=== PATIENT | male | born 1955 | race Caucasian/White ===

== ENCOUNTER → 2016-02-16 | Outpatient (CLI) | payer OTHER ==
[2016-02-16 16:11] LABS: CH 30.1; CHCM 34.2; HCT 50.5 % (39.0-53.0); HDW 2.52; HGB 16.5 gm/dL (13.0-17.5); MCH 28.9 pg (25.0-35.0); MCHC 32.7 g/dL (31.0-37.0); MCV 88.5 fL (80.0-100.0); RDW 12.9 % (11.5-15.5); WBC 8.4 k/uL (3.8-10.6)
[2016-02-16 16:51] LABS: Prostate Specific Antigen 0.58 ng/mL (0.00-4.00)
== END | disposition home or self-care (01) ==
LOC: LABWHC1 15:46
PROVIDERS: ATTEND Internal Medicine Endocrinology, Diabetes & Metabolism
DX: E29.1 Testicular hypofunction (principal)
CPT/HCPCS: 36415; 84153; 84403; 85027

== ENCOUNTER → 2016-02-23 | Outpatient (CLI) | payer OTHER ==
--- NOTE | 2016-02-23 15:17 | XR ---
EXAMINATION TYPE: XR lumbar spine 2 or 3V DATE OF EXAM: 02/23/2016 3:10 PM COMPARISON: NONE HISTORY: Low back pain TECHNIQUE: 3 view lumbar spine FINDINGS: There is mild loss of disc height throughout the lumbar spine. Spondylosis is present. No s pondylolisthesis is present. Vertebral body heights are preserved. There 5 lumbar-type vertebral bodi es. The pedicles are intact. IMPRESSION: 1. Mild degenerative disc changes.
== END | disposition home or self-care (01) ==
LOC: RADXRMAIN 14:56
PROVIDERS: ATTEND Family Medicine
DX: M47.816 Spondylosis without myelopathy or radiculopathy, lumbar region (principal)
CPT/HCPCS: 72100

== ENCOUNTER → 2016-05-18 | Outpatient (CLI) | payer OTHER ==
--- NOTE | 2016-05-18 18:40 | MR ---
EXAMINATION TYPE: MR lumbar spine wo con DATE OF EXAM: 05/18/2016 6:28 PM COMPARISON: Plain film 23 February 2016 HISTORY: low back pain x3 months TECHNIQUE: Multiplanar, multisequence images of the lumbar spine were acquired. L1-L2: Normal disc appearance without desiccation. No herniation, protrusion or disc bulging. No ca nal stenosis is present. Foramina are patent bilaterally. L2-L3: Circumferential posterior broad-based disc bulge causes anterior mass effect on the thecal sac and extends circumferentially causing bilateral foraminal encroachment. Facet arthropathy with hyper trophy of the ligamentum flavum causes lateral recess encroachment, there is resulting mild to modera te central canal stenosis. L3-L4: Small central posterior disc bulge causes anterior mass effect on the thecal sac. There is fac et arthropathy with some mild encroachment on the lateral recesses. Only mild central stenosis. No si gnificant foraminal encroachment. L4-L5: Facet arthropathy with hypertrophy of the ligamentum flavum encroaches on the lateral recesses right greater than left. Listhesis contributes to cause bilateral foraminal encroachment. Increased signal at the posterior aspect of the disc may represent a small annular tear, small disc herniation is present centrally contacting the anterior thecal sac, there is trefoil appearance to the thecal sa c. Only mild central stenosis. L5-S1: Small central posterior disc bulge causes mass effect on the anterior thecal sac, circumferent ial extension endplate disc complex results in bilateral foraminal encroachment left greater than rig ht. There is facet arthropathy. Lumbar segments are intact. There is a spinal curvature present. No paraspinal masses are identified . Conus medullaris has a normal appearance. There is multilevel spondylosis with endplate discogenic marrow signal change. Anterolisthesis grade 1 L4-5, retrolisthesis grade 1 L5-S1. Loss of disc heigh t and signal at L4-5 and L5-S1 is present, there is associated vacuum phenomenon. Loss of disc height and signal less pronounced at L2-3, L3-4. IMPRESSION: Degenerative disc disease, facet arthropathy, foraminal encroachment as described. Spinal curvature.
== END | disposition home or self-care (01) ==
LOC: RADMRIMAIN 17:21
PROVIDERS: ATTEND Family Medicine
DX: M51.36 Other intervertebral disc degeneration, lumbar region (principal); M46.96 Unspecified inflammatory spondylopathy, lumbar region; M43.9 Deforming dorsopathy, unspecified
CPT/HCPCS: 72148

== ENCOUNTER → 2016-06-07 | Outpatient (CLI) | payer OTHER ==
[2016-06-07 16:59] LABS: CH 30.3; HCT 49.8 % (39.0-53.0); HDW 2.47; HGB 16.4 gm/dL (13.0-17.5); MCH 30.4 pg (25.0-35.0); MCV 92.3 fL (80.0-100.0); Mean Platelet Volume 6.4; RDW 13.6 % (11.5-15.5); WBC 12.2 k/uL (3.8-10.6)
== END | disposition home or self-care (01) ==
LOC: LABWHC1 16:42
PROVIDERS: ATTEND Internal Medicine Endocrinology, Diabetes & Metabolism
DX: E29.1 Testicular hypofunction (principal)
CPT/HCPCS: 36415; 84403; 85027

== ENCOUNTER → 2016-10-13 | Outpatient (CLI) | payer OTHER ==
[2016-10-13 14:52] LABS: CH 31.6; CHCM 34.6; HCT 49.9 % (39.0-53.0); HDW 2.65; MCH 31.3 pg (25.0-35.0); MCHC 34.1 g/dL (31.0-37.0); MCV 91.7 fL (80.0-100.0); Mean Platelet Volume 6.3; RBC 5.44 m/uL (4.30-5.90); RDW 13.5 % (11.5-15.5); WBC 8.4 k/uL (3.8-10.6)
== END | disposition home or self-care (01) ==
LOC: LABWHC1 14:13
PROVIDERS: ATTEND Internal Medicine Endocrinology, Diabetes & Metabolism
DX: E29.1 Testicular hypofunction (principal)
CPT/HCPCS: 36415; 84403; 85027

== ENCOUNTER → 2017-03-03 | Outpatient (CLI) | payer OTHER ==
[2017-03-03 15:29] LABS: HGB 16.2 gm/dL (13.0-17.5); MCH 28.8 pg (25.0-35.0); MCHC 32.4 g/dL (31.0-37.0); MCV 88.7 fL (80.0-100.0); Mean Platelet Volume 6.9; Platelet Count 288 k/uL (150-450); RBC 5.64 m/uL (4.30-5.90); RDW 13.8 % (11.5-15.5)
== END | disposition home or self-care (01) ==
LOC: LABWHC1 14:49
PROVIDERS: ATTEND Internal Medicine Endocrinology, Diabetes & Metabolism
DX: E29.1 Testicular hypofunction (principal)
CPT/HCPCS: 36415; 84153; 84403; 85027

== ENCOUNTER → 2017-07-06 | Outpatient (CLI) | payer OTHER ==
[2017-07-06 15:21] LABS: HCT 46.8 % (39.0-53.0); MCH 30.2 pg (25.0-35.0); MCHC 34.1 g/dL (31.0-37.0); MCV 88.4 fL (80.0-100.0); Mean Platelet Volume 6.3; Platelet Count 239 k/uL (150-450); RDW 13.1 % (11.5-15.5); WBC 8.4 k/uL (3.8-10.6)
== END | disposition home or self-care (01) ==
LOC: LABWHC1 14:37
PROVIDERS: ATTEND Internal Medicine Endocrinology, Diabetes & Metabolism
DX: E29.1 Testicular hypofunction (principal)
CPT/HCPCS: 36415; 84403; 85027

== ENCOUNTER → 2017-11-25 | Outpatient (CLI) | payer OTHER ==
[2017-11-25 12:49] LABS: HCT 45.8 % (39.0-53.0); HGB 15.9 gm/dL (13.0-17.5); MCH 31.3 pg (25.0-35.0); MCHC 34.8 g/dL (31.0-37.0); MCV 90.1 fL (80.0-100.0); Mean Platelet Volume 6.3; Platelet Count 282 k/uL (150-450); RBC 5.09 m/uL (4.30-5.90); RDW 12.9 % (11.5-15.5); WBC 6.8 k/uL (3.8-10.6)
== END ==
LOC: LABWHC1 11:39
PROVIDERS: ATTEND Internal Medicine Endocrinology, Diabetes & Metabolism
DX: E29.1 Testicular hypofunction (principal)
CPT/HCPCS: 36415; 84153; 84403; 85027

== ENCOUNTER → 2018-01-21 | Outpatient (CLI) | payer OTHER ==
[2018-01-21 11:17] LABS: Basophils % (A) 1 %; Eosinophils # (A) 0.3 k/uL (0-0.7); Eosinophils % (A) 5 %; HCT 46.4 % (39.0-53.0); HGB 15.6 gm/dL (13.0-17.5); Lymphocytes # (A) 1.4 k/uL (1.0-4.8); Lymphocytes % (A) 21 %; MCH 29.8 pg (25.0-35.0); MCHC 33.6 g/dL (31.0-37.0); MCV 88.7 fL (80.0-100.0); Mean Platelet Volume 6.3; Monocytes # (A) 0.5 k/uL (0-1.0); Monocytes % (A) 7 %; Neutrophils # (A) 4.4 k/uL (1.3-7.7); Neutrophils % (A) 65 %; Platelet Count 233 k/uL (150-450); RBC 5.23 m/uL (4.30-5.90); RDW 12.7 % (11.5-15.5); WBC 6.8 k/uL (3.8-10.6)
[2018-01-21 16:50] LABS: Albumin 4.2 g/dL (3.80-4.90); Albumin/Globulin Ratio 2.33 (1.20-2.10); Globulin 1.8 g/dL (2.1-3.7); Total Bilirubin 0.7 mg/dL (0.2-1.2); Vitamin D 25 Hydroxy 39.9 ng/mL (30.0-100.0)
[2018-01-21 17:14] LABS: Hepatitis C IgG Antibody Non-Reactive (Non-Reactive)
== END | disposition home or self-care (01) ==
LOC: LABWHC1 10:31
PROVIDERS: ATTEND Family Medicine
DX: I10 Essential (primary) hypertension (principal); E55.9 Vitamin D deficiency, unspecified; Z11.59 Encounter for screening for other viral diseases
CPT/HCPCS: 36415; 80053; 80061; 82306; 85025; 86803

== ENCOUNTER → 2018-04-04 | Outpatient (CLI) | payer OTHER ==
[2018-04-04 17:04] LABS: HCT 47.3 % (39.0-53.0); HGB 16.3 gm/dL (13.0-17.5); MCH 30.9 pg (25.0-35.0); MCHC 34.4 g/dL (31.0-37.0); MCV 89.8 fL (80.0-100.0); Mean Platelet Volume 6.9; Platelet Count 257 k/uL (150-450); RBC 5.26 m/uL (4.30-5.90); RDW 13.7 % (11.5-15.5); WBC 8.6 k/uL (3.8-10.6)
== END | disposition home or self-care (01) ==
LOC: LABWHC1 16:03
PROVIDERS: ATTEND Internal Medicine Endocrinology, Diabetes & Metabolism
DX: E29.1 Testicular hypofunction (principal)
CPT/HCPCS: 36415; 84153; 84403; 85027

== ENCOUNTER → 2018-08-14 | Outpatient (CLI) | payer OTHER ==
[2018-08-14 17:41] LABS: HCT 47.6 % (39.0-53.0); MCH 29.8 pg (25.0-35.0); MCHC 33.5 g/dL (31.0-37.0); MCV 88.7 fL (80.0-100.0); Mean Platelet Volume 6.3; Platelet Count 269 k/uL (150-450); RBC 5.37 m/uL (4.30-5.90); RDW 13.3 % (11.5-15.5); WBC 9.9 k/uL (3.8-10.6)
== END | disposition home or self-care (01) ==
LOC: LABWHC1 16:37
PROVIDERS: ATTEND Internal Medicine Endocrinology, Diabetes & Metabolism
DX: E29.1 Testicular hypofunction (principal)
CPT/HCPCS: 36415; 84403; 85027

== ENCOUNTER → 2018-12-06 | Outpatient (CLI) | payer OTHER ==
[2018-12-06 17:28] LABS: HCT 45.5 % (39.0-53.0); HGB 15.5 gm/dL (13.0-17.5); MCH 30.6 pg (25.0-35.0); Mean Platelet Volume 6.4; Platelet Count 262 k/uL (150-450); RBC 5.05 m/uL (4.30-5.90); WBC 8.8 k/uL (3.8-10.6)
== END ==
LOC: LABWHC1 16:18
PROVIDERS: ATTEND Internal Medicine Endocrinology, Diabetes & Metabolism
DX: E29.1 Testicular hypofunction (principal)
CPT/HCPCS: 36415; 84153; 84403; 85027

== ENCOUNTER → 2019-04-13 | Outpatient (CLI) | payer MEDICARE ==
[2019-04-13 10:10] LABS: HCT 47.7 % (39.0-53.0); HGB 16.1 gm/dL (13.0-17.5); MCHC 33.7 g/dL (31.0-37.0); Mean Platelet Volume 7.1; Platelet Count 231 k/uL (150-450); RBC 5.36 m/uL (4.30-5.90); RDW 12.7 % (11.5-15.5); WBC 5.9 k/uL (3.8-10.6)
== END | disposition home or self-care (01) ==
LOC: LABWHC1 09:12
PROVIDERS: ATTEND Internal Medicine Endocrinology, Diabetes & Metabolism
DX: E29.1 Testicular hypofunction (principal)
CPT/HCPCS: 36415; 84403; 85027

== ENCOUNTER → 2019-09-13 | Outpatient (CLI) | payer MEDICARE ==
[2019-09-13 10:59] LABS: HCT 52.5 % (39.0-53.0); MCH 29.1 pg (25.0-35.0); MCHC 32.5 g/dL (31.0-37.0); MCV 89.7 fL (80.0-100.0); Mean Platelet Volume 6.6; Platelet Count 287 k/uL (150-450); RBC 5.85 m/uL (4.30-5.90); RDW 13.2 % (11.5-15.5)
[2019-09-13 17:45] LABS: Prostate Specific Antigen 0.4 ng/mL (0.0-4.5)
== END | disposition home or self-care (01) ==
LOC: LABWHC1 09:30
PROVIDERS: ATTEND Internal Medicine Endocrinology, Diabetes & Metabolism
DX: E29.1 Testicular hypofunction (principal)
CPT/HCPCS: 36415; 84153; 84403; 85027

== ENCOUNTER → 2020-02-28 | Outpatient (CLI) | payer MEDICARE ==
[2020-02-28 11:15] LABS: HCT 51.3 % (39.0-53.0); HGB 17.1 gm/dL (13.0-17.5); MCH 30.1 pg (25.0-35.0); MCHC 33.2 g/dL (31.0-37.0); MCV 90.7 fL (80.0-100.0); Mean Platelet Volume 6.7; Platelet Count 243 k/uL (150-450); RBC 5.66 m/uL (4.30-5.90); RDW 12.7 % (11.5-15.5); WBC 7.8 k/uL (3.8-10.6)
== END | disposition home or self-care (01) ==
LOC: LABWHC1 10:21
PROVIDERS: ATTEND Internal Medicine Endocrinology, Diabetes & Metabolism
DX: E29.1 Testicular hypofunction (principal)
CPT/HCPCS: 36415; 84403; 85027

== ENCOUNTER → 2020-07-03 | Outpatient (CLI) | payer MEDICARE ==
[2020-07-03 14:19] LABS: HGB 16.4 g/dL (13.0-17.0); MCH 29.3 pg (27.0-32.0); MCHC 32.8 g/dL (32.0-37.0); MCV 89.4 fL (80.0-97.0); Mean Platelet Volume 9.7 fL (9.5-12.2); Platelet Count 265 X 10*3/uL (140-440); RBC 5.59 X 10*6/uL (4.40-5.60); RDW 13.3 % (11.5-14.5); WBC 6.76 X 10*3/uL (4.50-10.00)
[2020-07-03 22:06] LABS: Prostate Specific Antigen 0.4 ng/mL (0.0-4.5)
== END | disposition home or self-care (01) ==
LOC: LABWHC1 08:39
PROVIDERS: ATTEND Internal Medicine Endocrinology, Diabetes & Metabolism
DX: E29.1 Testicular hypofunction (principal)
CPT/HCPCS: 36415; 84153; 84403; 85027

== ENCOUNTER → 2020-10-23 | Outpatient (CLI) | payer MEDICARE ==
[2020-10-23 14:36] LABS: MCH 29.1 pg (27.0-32.0); MCV 91.1 fL (80.0-97.0); Mean Platelet Volume 9.9 fL (9.5-12.2); Platelet Count 272 X 10*3/uL (140-440); RBC 5.49 X 10*6/uL (4.40-5.60); RDW 13.8 % (11.5-14.5); WBC 6.69 X 10*3/uL (4.50-10.00)
== END | disposition home or self-care (01) ==
LOC: LABWHC1 08:06
PROVIDERS: ATTEND Internal Medicine Endocrinology, Diabetes & Metabolism
DX: E29.1 Testicular hypofunction (principal)
CPT/HCPCS: 36415; 84403; 85027

== ENCOUNTER → 2021-01-13 | Outpatient (CLI) | payer MEDICARE ==
--- NOTE | 2021-01-14 02:15 | CT ---
EXAMINATION TYPE: CT ankle LT wo con DATE OF EXAM: 01/13/2021 COMPARISON: None HISTORY: Posterior tibial tendon dysfunction CT DLP: 214 mGycm Automated exposure control for dose reduction was used. Contrast: None Technique: Axial images 3 mm thick sections. Reconstructed images in the coronal and sagittal plane. FINDINGS: No acute osseous abnormalities are evident. 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 The ankle mortise appears intact . There is some narrowing of the joint space. Three-D reconstructed images are performed. There is ill-defined soft tissue thickening posterior to the talocalcaneal junction. Inflammatory patel nges associated with tendinitis or tendon rupture should be considered. An intact tendon through this region is not identified but may not be visualized due to the density inflammation. MRI would be mor e sensitive for evaluation. Appears to be some soft tissue swelling over the medial malleolus. Milder diffuse soft tissue swellin g is present. IMPRESSION: 1. SUSPECTED INFLAMMATORY CHANGES AND SOFT TISSUE SWELLING OF THE DISTAL POSTERIOR TIBIAL TENDON CARL ON. PARTIAL OR COMPLETE TEARS NOT EXCLUDED. MRI IS RECOMMENDED FOR ADDITIONAL EVALUATION.
== END | disposition home or self-care (01) ==
LOC: RADCTMAIN 08:14
PROVIDERS: ATTEND Orthopaedic Surgery Foot and Ankle Surgery
DX: M76.822 Posterior tibial tendinitis, left leg (principal)

== ENCOUNTER → 2021-02-12 | Outpatient (CLI) | payer MEDICARE ==
[2021-02-12 14:32] LABS: HCT 49.8 % (39.6-50.0); HGB 16.1 g/dL (13.0-17.0); MCH 28.5 pg (27.0-32.0); MCHC 32.3 g/dL (32.0-37.0); MCV 88.3 fL (80.0-97.0); Mean Platelet Volume 9.7 fL (9.5-12.2); Platelet Count 277 X 10*3/uL (140-440); RBC 5.64 X 10*6/uL (4.40-5.60); RDW 12.9 % (11.5-14.5); WBC 7.73 X 10*3/uL (4.50-10.00)
[2021-02-12 17:23] LABS: Prostate Specific Antigen 0.6 ng/mL (0.00-4.50)
== END | disposition home or self-care (01) ==
LOC: LABWHC1 08:54
PROVIDERS: ATTEND Internal Medicine Endocrinology, Diabetes & Metabolism
DX: E29.1 Testicular hypofunction (principal)
CPT/HCPCS: 36415; 84153; 84403; 85027

== ENCOUNTER → 2021-07-30 | Outpatient (CLI) | payer MEDICARE ==
[2021-07-30 14:08] LABS: HCT 48.3 % (39.6-50.0); HGB 15.3 g/dL (13.0-17.0); MCH 27.9 pg (27.0-32.0); MCHC 31.7 g/dL (32.0-37.0); MCV 88.1 fL (80.0-97.0); Mean Platelet Volume 9.9 fL (9.5-12.2); NRBC Per 100 WBC 0 /100 WBCS (0.0-0.0); Platelet Count 263 X 10*3/uL (140-440); RBC 5.48 X 10*6/uL (4.40-5.60); RDW 13.9 % (11.5-14.5); WBC 8.09 X 10*3/uL (4.50-10.00)
== END | disposition home or self-care (01) ==
LOC: LABWHC1 08:52
PROVIDERS: ATTEND Internal Medicine Endocrinology, Diabetes & Metabolism
DX: E29.1 Testicular hypofunction (principal)
CPT/HCPCS: 36415; 84403; 85027

== ENCOUNTER → 2022-05-17 | Outpatient (CLI) | payer MEDICARE ==
[2022-05-17 16:36] LABS: Chol/HDL Ratio 3.95 Ratio; LDL Cholesterol,Calculated 124.4 mg/dL (0.0-131.0); VLDL Calculation 14.48 mg/dL (5.00-40.00)
[2022-05-17 16:45] LABS: Basophils # (A) 0.06 X 10*3/uL (0.00-0.10); Basophils % (A) 0.9 %; Eosinophils # (A) 0.29 X 10*3/uL (0.04-0.35); Eosinophils % (A) 4.1 %; HGB 15.5 g/dL (13.0-17.0); Immature Grans, Automated 0.4 %; Lymphocytes # (A) 1.86 X 10*3/uL (0.90-5.00); Lymphocytes % (A) 26.6 %; MCH 28.4 pg (27.0-32.0); MCHC 32.3 g/dL (32.0-37.0); MCV 87.9 fL (80.0-97.0); Mean Platelet Volume 9.6 fL (9.5-12.2); Monocytes # (A) 0.66 X 10*3/uL (0.20-1.00); Monocytes % (A) 9.4 %; NRBC Per 100 WBC 0 /100 WBCS (0.0-0.0); Neutrophils % (A) 58.6 %; Platelet Count 264 X 10*3/uL (140-440); RBC 5.46 X 10*6/uL (4.40-5.60); RDW 13.3 % (11.5-14.5)
[2022-05-17 17:08] LABS: ALT 31 U/L (10-49); AST 24 U/L (14-35); African American GFR (CKD) 59.9 (60.0-200.0); Albumin 4.3 g/dL (3.8-4.9); Albumin/Globulin Ratio 1.59 (1.60-3.17); Alkaline Phosphatase 83 U/L (41-126); BUN/Creat Ratio 18.06 Ratio (12.00-20.00); Blood Urea Nitrogen 25.1 mg/dL (9.0-27.0); Calcium 9.5 mg/dL (8.7-10.3); Carbon Dioxide 26.9 mmol/L (20.0-27.5); Chloride 103 mmol/L (96-109); Globulin 2.7 g/dL (1.6-3.3); Glucose 152 mg/dL (70-110); Non-African American GFR(CKD) 51.7 (60.0-200.0); Potassium 4.9 mmol/L (3.5-5.5); Sodium 142 mmol/L (135-145); Total Protein 6.9 g/dL (6.2-8.2)
== END | disposition home or self-care (01) ==
LOC: LABWHC1 08:32
PROVIDERS: ATTEND Family Medicine
DX: Z00.01 Encounter for general adult medical examination with abnormal findings (principal); Z12.5 Encounter for screening for malignant neoplasm of prostate; E11.65 Type 2 diabetes mellitus with hyperglycemia
CPT/HCPCS: 36415; 80053; 80061; 83036; 84153; 84439; 84443; 85025

== ENCOUNTER → 2022-07-30 | Outpatient (CLI) | payer MEDICARE ==
[2022-07-30 21:40] LABS: HCT 48.8 % (39.6-50.0); HGB 16.1 d/dL (12.0-15.0); MCH 29.2 pg (27.0-32.0); MCV 88.4 FL (80.0-97.0); Mean Platelet Volume 9.4 FL (9.5-12.2); NRBC Per 100 WBC 0 X 10*3/uL (0.00-0.01); Platelet Count 238 X 10*3/uL (140-440); RBC 5.52 X 10*6/uL (4.40-5.60); RDW 13.2 % (11.5-14.5); WBC 7.86 X 10*3/uL (4.50-10.00)
== END | disposition home or self-care (01) ==
LOC: LABWHC1 10:32
PROVIDERS: ATTEND Internal Medicine Endocrinology, Diabetes & Metabolism
DX: E29.1 Testicular hypofunction (principal)
CPT/HCPCS: 36415; 84403; 85027

== ENCOUNTER → 2022-11-19 | Outpatient (CLI) | payer MEDICARE ==
--- NOTE | 2022-11-24 09:43 | MR ---
EXAMINATION TYPE: MR humerus RT wo con DATE OF EXAM: 11/19/2022 COMPARISON: No radiographic correlation available HISTORY: 67-year-old male [id number] STRAIN OF MUSC/FASC/TEND PRT BICEPS, Rupture of biceps tendon, Rt upper arm pain, felt a pop when lifting plywood, and had a lump anterior part of bicep TECHNIQUE: Multiplanar, multisequence images of the right humerus were obtained without IV contrast. FINDINGS: There may be some partial thickness tearing of the anterior supraspinatus tendon, coronal image 19. N o atrophy of the rotator cuff musculature is apparent. There is fluid within the bicipital groove but the groove otherwise appears empty. There is retracted , balled up stump of the torn long head biceps tendon. There is retraction of approximately 14.0 cm f rom the top of the humeral head. Refer to sagittal image 16, coronal image 15, and axial image 38. As sociated edema and some hemorrhagic fluid at the anterior soft tissues at the site of the retracted s tump. Underlying heterogeneous red marrow hyperplasia. IMPRESSION: Rupture of the long head biceps tendon likely from its proximal origin. The retracted stump is locate d at the mid arm, approximately 14 cm from the top of the humeral head. The bicipital groove contains some fluid but otherwise appears empty.
== END | disposition home or self-care (01) ==
LOC: RADMRIMAIN 21:45
PROVIDERS: ATTEND Family Medicine
DX: S46.211A Strain of muscle, fascia and tendon of other parts of biceps, right arm, initial encounter (principal)

== ENCOUNTER → 2023-01-10 | Outpatient (CLI) | payer MEDICARE ==
[2023-01-10 11:05] LABS: ALT 35 U/L (10-49); AST 26 U/L (14-35); Albumin 4.4 g/dL (3.8-4.9); Albumin/Globulin Ratio 1.76 Ratio (1.60-3.17); Alkaline Phosphatase 79 U/L (41-126); BUN/Creat Ratio 10.38 Ratio (12.00-20.00); Blood Urea Nitrogen 16.6 mg/dL (9.0-27.0); Calcium 9.8 mg/dL (8.7-10.3); Carbon Dioxide 26.5 mmol/L (21.6-31.8); Chloride 101 mmol/L (96-109); Chol/HDL Ratio 2.69 Ratio; Globulin 2.5 g/dL (1.6-3.3); Glucose 108 mg/dL (70-110); LDL Cholesterol,Calculated 56.6 mg/dL (0.0-131.0); Potassium 4.8 mmol/L (3.5-5.5); Sodium 140 mmol/L (135-145); Total Bilirubin 0.5 mg/dL (0.3-1.2); Total Protein 6.9 g/dL (6.2-8.2); VLDL Calculation 13.18 mg/dL (5.00-40.00)
== END | disposition home or self-care (01) ==
LOC: LABWHC1 07:26
PROVIDERS: ATTEND Family Medicine
DX: E11.65 Type 2 diabetes mellitus with hyperglycemia (principal); I25.84 Coronary atherosclerosis due to calcified coronary lesion
CPT/HCPCS: 36415; 80053; 80061; 83036

== ENCOUNTER → 2023-02-02 | Outpatient (CLI) | payer MEDICARE ==
[2023-02-02 11:10] LABS: BUN/Creat Ratio 14.31 Ratio (12.00-20.00); Blood Urea Nitrogen 18.6 mg/dL (9.0-27.0); Calcium 9.5 mg/dL (8.7-10.3); Carbon Dioxide 24.3 mmol/L (21.6-31.8); Chloride 107 mmol/L (96-109); Glucose 121 mg/dL (70-110); Potassium 4.4 mmol/L (3.5-5.5); Sodium 142 mmol/L (135-145)
== END | disposition home or self-care (01) ==
LOC: LABWHC1 07:03
PROVIDERS: ATTEND Family Medicine
DX: I10 Essential (primary) hypertension (principal)
CPT/HCPCS: 36415; 80048

== ENCOUNTER → 2023-03-25 | Outpatient (CLI) | payer MEDICARE ==
[2023-03-25 15:57] LABS: HCT 46.8 % (39.6-50.0); HGB 15.6 g/dL (13.0-17.0); MCH 29.6 pg (27.0-32.0); MCHC 33.3 g/dL (32.0-37.0); MCV 88.8 FL (80.0-97.0); Mean Platelet Volume 9.8 FL (9.5-12.2); NRBC Per 100 WBC 0 X 10*3/uL (0.00-0.01); Platelet Count 259 X 10*3/uL (140-440); RBC 5.27 X 10*6/uL (4.40-5.60); RDW 12.9 % (11.5-14.5); WBC 5.75 X 10*3/uL (4.50-10.00)
[2023-03-25 16:21] LABS: Prostate Specific Antigen 0.58 ng/mL (0.000-4.500)
== END | disposition home or self-care (01) ==
LOC: LABWHC1 09:16
PROVIDERS: ATTEND Internal Medicine Endocrinology, Diabetes & Metabolism
DX: E29.1 Testicular hypofunction (principal)
CPT/HCPCS: 36415; 84153; 84403; 85027

== ENCOUNTER → 2023-05-05 | Outpatient (CLI) | payer MEDICARE ==
[2023-05-05 15:23] LABS: Basophils # (A) 0.06 X 10*3/uL (0.00-0.10); Eosinophils # (A) 0.14 X 10*3/uL (0.04-0.35); Eosinophils % (A) 2.3 %; HGB 15.7 g/dL (13.0-17.0); Lymphocytes # (A) 1.41 X 10*3/uL (0.90-5.00); Lymphocytes % (A) 23.5 %; MCHC 33.4 g/dL (32.0-37.0); MCV 86.9 FL (80.0-97.0); Mean Platelet Volume 9.4 FL (9.5-12.2); Monocytes % (A) 8.3 %; NRBC Per 100 WBC 0 X 10*3/uL (0.00-0.01); Neutrophils # (A) 3.86 X 10*3/uL (1.80-7.70); Neutrophils % (A) 64.6 %; Platelet Count 242 X 10*3/uL (140-440); RBC 5.41 X 10*6/uL (4.40-5.60); RDW 13.4 % (11.5-14.5); WBC 5.99 X 10*3/uL (4.50-10.00)
[2023-05-05 15:41] LABS: ALT 22 U/L (10-49); AST 16 U/L (14-35); Albumin 4.6 g/dL (3.8-4.9); Alkaline Phosphatase 72 U/L (41-126); BUN/Creat Ratio 26.55 Ratio (12.00-20.00); Blood Urea Nitrogen 29.2 mg/dL (9.0-27.0); Calcium 9.7 mg/dL (8.7-10.3); Carbon Dioxide 22.9 mmol/L (21.6-31.8); Chloride 106 mmol/L (96-109); Chol/HDL Ratio 2.41 Ratio; Globulin 2.3 g/dL (1.6-3.3); Glucose 104 mg/dL (70-110); LDL Cholesterol,Calculated 60.2 mg/dL (0.0-131.0); Potassium 4.8 mmol/L (3.5-5.5); Sodium 140 mmol/L (135-145); T4, Free (Free Thyroxine) 1.24 ng/dL (0.80-1.80); Total Bilirubin 0.6 mg/dL (0.3-1.2); Total Protein 6.9 g/dL (6.2-8.2); VLDL Calculation 8.84 mg/dL (5.00-40.00)
== END | disposition home or self-care (01) ==
LOC: LABWHC1 10:05
PROVIDERS: ATTEND Family Medicine
DX: Z00.01 Encounter for general adult medical examination with abnormal findings (principal); I25.84 Coronary atherosclerosis due to calcified coronary lesion; E11.65 Type 2 diabetes mellitus with hyperglycemia; E55.9 Vitamin D deficiency, unspecified
CPT/HCPCS: 36415; 80053; 80061; 82306; 83036; 84439; 84443; 85025

== ENCOUNTER → 2023-07-29 | Outpatient (CLI) | payer MEDICARE ==
[2023-07-29 15:26] LABS: HCT 45.1 % (39.6-50.0); HGB 15.2 g/dL (13.0-17.0); MCHC 33.7 g/dL (32.0-37.0); MCV 89.1 FL (80.0-97.0); Mean Platelet Volume 9.6 FL (9.5-12.2); NRBC Per 100 WBC 0 X 10*3/uL (0.00-0.01); Platelet Count 248 X 10*3/uL (140-440); RBC 5.06 X 10*6/uL (4.40-5.60); WBC 8.12 X 10*3/uL (4.50-10.00)
[2023-07-29 15:28] LABS: Prostate Specific Antigen 0.73 ng/mL (0.000-4.500)
== END | disposition home or self-care (01) ==
LOC: LABWHC1 12:03
PROVIDERS: ATTEND Internal Medicine Endocrinology, Diabetes & Metabolism
DX: E29.1 Testicular hypofunction (principal)
CPT/HCPCS: 36415; 84153; 84403; 85027

== ENCOUNTER → 2023-09-07 | Outpatient (CLI) | payer MEDICARE ==
[2023-09-07 15:15] LABS: ALT 21 U/L (10-49); AST 19 U/L (14-35); Albumin 4.5 g/dL (3.8-4.9); Albumin/Globulin Ratio 2.14 Ratio (1.60-3.17); Alkaline Phosphatase 73 U/L (41-126); BUN/Creat Ratio 22.09 Ratio (12.00-20.00); Blood Urea Nitrogen 24.3 mg/dL (9.0-27.0); Calcium 9.8 mg/dL (8.7-10.3); Carbon Dioxide 23.7 mmol/L (21.6-31.8); Chloride 108 mmol/L (96-109); Chol/HDL Ratio 2.12 Ratio; Globulin 2.1 g/dL (1.6-3.3); Glucose 108 mg/dL (70-110); LDL Cholesterol,Calculated 54.3 mg/dL (0.0-131.0); Potassium 4.5 mmol/L (3.5-5.5); Sodium 143 mmol/L (135-145); Total Bilirubin 0.5 mg/dL (0.3-1.2); Total Protein 6.6 g/dL (6.2-8.2)
== END | disposition home or self-care (01) ==
LOC: LABWHC1 08:48
PROVIDERS: ATTEND Family Medicine
DX: E11.65 Type 2 diabetes mellitus with hyperglycemia (principal); I25.84 Coronary atherosclerosis due to calcified coronary lesion
CPT/HCPCS: 36415; 80053; 80061; 83036

== ENCOUNTER → 2024-01-13 | Outpatient (CLI) | payer MEDICARE ==
[2024-01-13 15:38] LABS: HGB 14.7 g/dL (13.0-17.0); MCH 29.7 pg (27.0-32.0); MCHC 33.4 g/dL (32.0-37.0); MCV 88.9 FL (80.0-97.0); Mean Platelet Volume 9.5 FL (9.5-12.2); NRBC Per 100 WBC 0 X 10*3/uL (0.00-0.01); Platelet Count 226 X 10*3/uL (140-440); RBC 4.95 X 10*6/uL (4.40-5.60); RDW 12.8 % (11.5-14.5); WBC 5.67 X 10*3/uL (4.50-10.00)
[2024-01-13 15:52] LABS: ALT 19 U/L (10-49); AST 17 U/L (14-35); Albumin 4.4 g/dL (3.8-4.9); Alkaline Phosphatase 67 U/L (41-126); Blood Urea Nitrogen 15.4 mg/dL (9.0-27.0); Calcium 9.6 mg/dL (8.7-10.3); Carbon Dioxide 25.8 mmol/L (21.6-31.8); Chloride 108 mmol/L (96-109); Chol/HDL Ratio 1.78 Ratio; Globulin 2.1 g/dL (1.6-3.3); Glucose 98 mg/dL (70-110); LDL Cholesterol,Calculated 36.8 mg/dL (0.0-131.0); Potassium 4.4 mmol/L (3.5-5.5); Prostate Specific Antigen 0.66 ng/mL (0.000-6.500); Sodium 142 mmol/L (135-145); Total Bilirubin 0.8 mg/dL (0.3-1.2); Total Protein 6.5 g/dL (6.2-8.2)
== END | disposition home or self-care (01) ==
LOC: LABWHC1 09:02
PROVIDERS: ATTEND Family Medicine
DX: E11.65 Type 2 diabetes mellitus with hyperglycemia (principal); I25.84 Coronary atherosclerosis due to calcified coronary lesion; E29.1 Testicular hypofunction
CPT/HCPCS: 36415; 80053; 80061; 83036; 84153; 84403; 85027

== ENCOUNTER → 2024-05-08 | Outpatient (CLI) | payer MEDICARE ==
[2024-05-08 15:11] LABS: ALT 22 U/L (10-49); AST 19 U/L (14-35); Albumin 4.3 g/dL (3.8-4.9); Albumin/Globulin Ratio 1.72 Ratio (1.60-3.17); Alkaline Phosphatase 81 U/L (41-126); BUN/Creat Ratio 15.75 Ratio (12.00-20.00); Blood Urea Nitrogen 18.9 mg/dL (9.0-27.0); Calcium 9.8 mg/dL (8.7-10.3); Carbon Dioxide 26.7 mmol/L (21.6-31.8); Chloride 107 mmol/L (96-109); Chol/HDL Ratio 2.03 Ratio; Estradiol 29.4 pg/mL; Globulin 2.5 g/dL (1.6-3.3); Glucose 119 mg/dL (70-110); LDL Cholesterol,Calculated 48.9 mg/dL (0.0-131.0); Potassium 5.1 mmol/L (3.5-5.5); Sodium 143 mmol/L (135-145); T4, Free (Free Thyroxine) 1.44 ng/dL (0.80-1.80); Total Bilirubin 0.5 mg/dL (0.3-1.2); Total Protein 6.8 g/dL (6.2-8.2); VLDL Calculation 11.38 mg/dL (5.00-40.00)
[2024-05-08 15:49] LABS: Basophils # (A) 0.05 X 10*3/uL (0.00-0.10); Basophils % (A) 0.7 %; Eosinophils # (A) 0.19 X 10*3/uL (0.04-0.35); Eosinophils % (A) 2.7 %; HCT 46.6 % (39.6-50.0); HGB 14.9 g/dL (13.0-17.0); Lymphocytes # (A) 1.24 X 10*3/uL (0.90-5.00); Lymphocytes % (A) 17.4 %; MCH 29.1 pg (27.0-32.0); Mean Platelet Volume 9.5 FL (9.5-12.2); Monocytes # (A) 0.49 X 10*3/uL (0.20-1.00); Monocytes % (A) 6.9 %; NRBC Per 100 WBC 0 X 10*3/uL (0.00-0.01); Neutrophils # (A) 5.12 X 10*3/uL (1.80-7.70); Neutrophils % (A) 71.7 %; Platelet Count 269 X 10*3/uL (140-440); RBC 5.12 X 10*6/uL (4.40-5.60); WBC 7.13 X 10*3/uL (4.50-10.00)
== END | disposition home or self-care (01) ==
LOC: LABWHC1 08:30
PROVIDERS: ATTEND Family Medicine
DX: E11.65 Type 2 diabetes mellitus with hyperglycemia (principal); I25.84 Coronary atherosclerosis due to calcified coronary lesion; E29.1 Testicular hypofunction
CPT/HCPCS: 36415; 80053; 80061; 82670; 83036; 84145; 84403; 84439; 84443; 85025

== ENCOUNTER → 2024-08-28 | Outpatient (CLI) | payer MEDICARE ==
[2024-08-28 10:26] LABS: Basophils # (A) 0.04 X 10*3/uL (0.00-0.10); Basophils % (A) 0.8 %; Eosinophils # (A) 0.20 X 10*3/uL (0.04-0.35); Eosinophils % (A) 4.0 %; HCT 43.1 % (39.6-50.0); HGB 14.6 g/dL (13.0-17.0); Immature Grans, Automated 0.40 %; Lymphocytes # (A) 1.17 X 10*3/uL (0.90-5.00); Lymphocytes % (A) 23.4 %; MCH 30.2 pg (27.0-32.0); MCHC 33.9 g/dL (32.0-37.0); MCV 89.0 FL (80.0-97.0); Monocytes # (A) 0.48 X 10*3/uL (0.20-1.00); Monocytes % (A) 9.6 %; NRBC Per 100 WBC 0 X 10*3/uL (0.00-0.01); Neutrophils # (A) 3.10 X 10*3/uL (1.80-7.70); Neutrophils % (A) 61.8 %; Platelet Count 217 X 10*3/uL (140-440); RBC 4.84 X 10*6/uL (4.40-5.60); RDW 13.0 % (11.5-14.5); WBC 5.01 X 10*3/uL (4.50-10.00)
[2024-08-28 10:56] LABS: ALT 28 U/L (10-49); AST 22 U/L (14-35); Albumin 4.5 g/dL (3.8-4.9); Albumin/Globulin Ratio 2.37 Ratio (1.60-3.17); Alkaline Phosphatase 69 U/L (41-126); Anion Gap 11.00 mmol/L (4.00-12.00); BUN/Creat Ratio 21.30 Ratio (12.00-20.00); Blood Urea Nitrogen 21.3 mg/dL (9.0-27.0); Calcium 9.5 mg/dL (8.7-10.3); Carbon Dioxide 24.0 mmol/L (21.6-31.8); Chloride 106 mmol/L (96-109); Cholesterol 123.00 mg/dL (0.00-200.00); Globulin 1.9 g/dL (1.6-3.3); Glucose 115 mg/dL (70-110); HDL Cholesterol 63.60 mg/dL (40.00-60.00); LDL Cholesterol,Calculated 50.3 mg/dL (0.0-131.0); Potassium 4.2 mmol/L (3.5-5.5); Sodium 141 mmol/L (135-145); Total Protein 6.4 g/dL (6.2-8.2); Triglycerides 45.30 mg/dL (0.00-149.00); VLDL Calculation 9.06 mg/dL (5.00-40.00)
== END | disposition home or self-care (01) ==
LOC: LABWHC1 07:13
PROVIDERS: ATTEND Family Medicine
DX: E11.65 Type 2 diabetes mellitus with hyperglycemia (principal); I25.84 Coronary atherosclerosis due to calcified coronary lesion; E29.1 Testicular hypofunction
CPT/HCPCS: 36415; 80053; 80061; 82670; 83036; 84146; 84402; 84403; 85025